=== PATIENT | female | born 1980 | race Caucasian/White ===

== ENCOUNTER 2019-05-16 10:29 | Day surgery (SDC) | payer OTHER ==
[2019-05-15 16:37] VITALS: BMI 30.4
--- NOTE | 2019-05-16 11:07 | HP ---
History & Physical Update - History History: No Change - Physical Physical: No Change - Assessment Assessment: No Change - Plan Plan: No Change (Patient was evaluated and counseled prior to scheduled procedure. Risks and complications of D&C reiterated. All questions answered. Informed consnet obtained.)
[2019-05-16] MEDS ORDERED: DOXYCYCLINE INJECTION 100 MG in DEXTROSE 5%-WATER - 100 ML IVPB ONE (11:30)
[2019-05-16] MEDS ORDERED: PROPOFOL 20 ML ONE (11:43)
[2019-05-16] MEDS ORDERED: MIDAZOLAM HCL 2 MG/2 ML SINGLE DOSE VIAL ONE ×2 (11:43)
[2019-05-16] MEDS ORDERED: fentaNYL CITRATE 250 MCG/5 ML VIAL ONE (11:43)
[2019-05-16] MEDS ORDERED: DOXYCYCLINE HYCLATE 100 MG VIAL IVPB ONE (12:02)
[2019-05-16] MEDS ORDERED: ONDANSETRON 4 MG/2 ML VIAL IVPUSH PRN (12:28)
[2019-05-16] MEDS ORDERED: PROMETHAZINE HCL 25 MG/1 ML VIAL IVPUSH PRN (12:28)
[2019-05-16] MEDS ORDERED: LACTATED RINGERS SOLUTION 1,000 ML IV SCH (12:30)
--- NOTE | 2019-05-16 12:54 | OP ---
Operative Note - Note: Operative Date: 05/16/19 (dic # [id number]) Pre-Operative Diagnosis: incomplete ab Operation: Suction dilatation and curettage Findings: see dictation Implants: none Post-Operative Diagnosis: Same as Pre-op Surgeon: Shin Serna Anesthesia: MAC Specimens Removed: RPOC Estimated Blood Loss (mls): 5 Fluid Volume Replaced (mls): 200 Operative Report Dictated: Yes
--- NOTE | 2019-05-16 14:00 | OP ---
DATE OF OPERATION: 05/16/2019 DICTATING ATTENDING: Makayla Michele MD PREOPERATIVE DIAGNOSIS: A 39-year-old female with incomplete , abnormally increasing accelerator globulin, desiring surgical intervention. POSTOPERATIVE DIAGNOSIS: A 39-year-old female with incomplete , abnormally increasing accelerator globulin, desiring surgical intervention. PROCEDURE: Dilatation and curettage. SURGEON: Makayla Michele MD SENIOR OFFICE SUPPORT ASSISTANT SOSA: None. ANESTHESIA: MAC. ESTIMATED BLOOD LOSS: Minimal. URINE OUTPUT: None. INTRAVENOUS FLUIDS: Crystalloid, 200 mL. FINDINGS: Normal external genitalia and vaginal mucosa, mild degree of anterior prolapse noted. The cervix was multiparous in appearance with no abnormalities. Cervix was closed. The uterus approximation was about 7-8 weeks of gestation. A small amount of tissue noted in curetting and suction curettage. Specimen sent to pathology. No active bleeding at the conclusion of the procedure. DESCRIPTION OF PROCEDURE: The patient was taken to the operating room where anesthesia was found to be adequate. She was then prepped and draped in a normal sterile fashion. Appropriate time-out took place. Pearl retractors were utilized to visualize the anterior aspect of the cervix, which was grasped with a single-tooth tenaculum. The cervix was progressively dilated with metal dilators. Small curetting took place systematically until gritty texture was noted throughout the entire endometrial cavity. A No. 8 curved cannula was introduced through the fundus without difficulty and suction curetting took place. Minimal amount of blood and tissue retrieved. The procedure concluded when a small amount of bubbles were noted in the tubing. Specimens were sent to Pathology. All instruments were retrieved from the vagina. A single-tooth tenaculum was removed, and no active bleeding was noted. Instrument count was reported as correct x2 by the staff. Patient tolerated the procedure well and was brought to the recovery room in stable condition. MKAAYLA MICHELE MD [id number]
[2019-05-16] MEDS ORDERED: ACETAMINOPHEN 325 MG TABLET (FP) PO ONE ×2 (14:25→14:45)
[2019-05-16] MEDS ORDERED: ACETAMINOPHEN 325 MG TABLET (FP) ONE (14:29)
[2019-05-16] MEDS ORDERED: DOXYCYCLINE HYCLATE 100 MG CAPSULE PO ONE ×2 (15:00→15:20)
[2019-05-16 15:59] VITALS: BP 115/61; PULSE 80; TEMP 98
--- NOTE | 2019-05-18 18:37 | PATH ---
Surgical Pathology Report Patient Name: BECKA LIRA Med. Rec. #: [id number] /Age/Gender: 1980 (Age: 39) / F Account: [id number] Location: [facility] SURGICAL Taken: 05/16/2019 Received: 05/16/2019 Reported: 05/18/2019 Physicians: Shin Serna MD Specimen(s) Received PRODUCTS OF CONCEPTION Clinical History Retained products of conception Final Diagnosis PRODUCTS OF CONCEPTION, DILATION AND CURETTAGE: FRAGMENTS OF ENDOMETRIUM WITH CHRONIC ENDOMETRITIS AND BENIGN CERVICAL TISSUE. NO CHORIONIC VILLI/VILLOUS TISSUE IDENTIFIED. Electronically Signed Ladonna Sharma M.D. Gross Description Received in formalin labeled "products of conception," is a 2.5 x 2.1 x 0.3 cm aggregate of javed-brown soft tissue fragments. No definite villous tissue or somatic tissue is identified. The formalin is filtered and the specimen is entirely submitted in one cassette. 05/17/2019 [facility]05/17/2019
== END 2019-05-16 15:35 | disposition home or self-care (01) ==
LOC: JASU-SURG 10:29
PROVIDERS: ATTEND Student in an Organized Health Care Education/Training Program
PROC: 10D17ZZ Extraction of Products of Conception, Retained, Via Natural or Artificial Opening (ICD-10-PCS; principal; 2019-05-16 11:30)
DX: O03.4 Incomplete spontaneous abortion without complication (principal)
CPT/HCPCS: 88305-TC; 94760

== ENCOUNTER 2019-07-27 04:57 | Day surgery (SDC) | payer OTHER ==
--- NOTE | 2019-07-27 11:50 | HP ---
History & Physical Update - Physical Physical: No Change - Assessment Assessment: No Change - Plan Plan: No Change
[2019-07-27] MEDS ORDERED: BUPIVACAINE HCL/PF 0.5% (5 MG/ML) 30 ML VIAL IJ ONE (12:26)
[2019-07-27] MEDS ORDERED: fentaNYL CITRATE 250 MCG/5 ML VIAL ONE (12:37)
[2019-07-27] MEDS ORDERED: MIDAZOLAM HCL 2 MG/2 ML SINGLE DOSE VIAL ONE (12:37)
[2019-07-27] MEDS ORDERED: DEXAMETHASONE SOD PHOSPHATE 4 MG/1 ML VIAL ONE (12:37)
[2019-07-27] MEDS ORDERED: KETOROLAC TROMETHAMINE 30 MG/1 ML VIAL ONE (12:37)
[2019-07-27] MEDS ORDERED: PROPOFOL 20 ML ONE ×2 (12:37)
[2019-07-27] MEDS ORDERED: LIDOCAINE HCL/PF 2% SDV 5ML VIAL ONE (12:37)
[2019-07-27] MEDS ORDERED: ROCURONIUM BROMIDE 50 MG/5 ML SYRINGE ONE (12:37)
[2019-07-27] MEDS ORDERED: BUPIVACAINE HCL/PF 2.5 MG/ML - 30 ML VIAL IJ ONE ×2 (13:02)
[2019-07-27] MEDS ORDERED: GLYCOPYRROLATE 0.2 MG/1 ML VIAL ONE ×2 (13:42)
[2019-07-27] MEDS ORDERED: NEOSTIGMINE METHYLSULFATE 0.5 MG/ML - 10 ML MDV ONE (13:42)
[2019-07-27] MEDS ORDERED: ONDANSETRON 4 MG/2 ML VIAL IVPUSH PRN (14:00)
[2019-07-27] MEDS ORDERED: PROMETHAZINE HCL 25 MG/1 ML VIAL IVPUSH PRN (14:00)
[2019-07-27] MEDS ORDERED: oxyCODONE HCL 5 MG TABLET PO PRN (14:00)
--- NOTE | 2019-07-27 14:00 | OP ---
Operative Note - Note: Operative Date: 07/27/19 Pre-Operative Diagnosis: Multiparity, desire for sterilization Operation: Laparoscopic Bilateral tubal ligation Findings: as dictated Post-Operative Diagnosis: Same as Pre-op Surgeon: Shin Serna Horizontal Drill Operator: Yanet Escobar Anesthesiologist/HANDBAG FRAMER: Robert Mullen Anesthesia: General, Local Specimens Removed: Bilateral fallopian tubes Estimated Blood Loss (mls): 5 (ml) Drains, Volume Out (mls): 100 (ml yellow urine) Fluid Volume Replaced (mls): 1 (L LR) Operative Report Dictated: Yes
--- NOTE | 2019-07-27 14:04 | SURG ---
Surgery Toy Mechanic Note Toy Mechanic: Yanet Escobar PA-C (Suzy) Date of Service: 07/27/19 Diagnosis: Multiparity, desire of sterilization Procedure: Operation: Laparoscopic Bilateral tubal ligation I was present for the entirety of the operative procedure. For further detail, please refer to operative report. Visit type - Case Type Case Type: Scheduled - Emergency Emergency Visit: No - New patient This patient is new to me today: Yes Date on this admission: 07/27/19 - Critical Care Critical Care patient: No
--- NOTE | 2019-07-27 14:11 | OP ---
Operative Note - Note: Operative Date: 07/27/19 ([id number]) Pre-Operative Diagnosis: multiparity Operation: laparoscopic bilateral salpingectomy Findings: see dictation Post-Operative Diagnosis: Same as Pre-op Surgeon: Shin Serna Anesthesia: General Estimated Blood Loss (mls): 5 Drains, Volume Out (mls): 100 (clear urine) Fluid Volume Replaced (mls): 1,000 Operative Report Dictated: Yes
--- NOTE | 2019-07-27 17:56 | OP ---
DATE OF OPERATION: 07/27/2019 PREOPERATIVE DIAGNOSIS: A 39-year-old multiparous female desires sterilization. Counseled regarding bilateral salpingectomy and acceptable. POSTOPERATIVE DIAGNOSIS: A 39-year-old multiparous female desires sterilization. Counseled regarding bilateral salpingectomy and acceptable. PROCEDURE: Laparoscopic bilateral salpingectomy. SURGEON: Makayla Michele MD RING SPINNER: DAMIAN Escobar ANESTHESIA: General. ESTIMATED BLOOD LOSS: Minimal. INTRAVENOUS FLUIDS: 1 L of crystalloid. URINE OUTPUT: 100 mL of clear urine. COMPLICATIONS: None. FINDINGS: Normal external genitalia and vaginal mucosa. Cervix was consistent with multiparity. Anterior abdominal wall anatomy was consistent with normal anatomy. Moderate amount of subcutaneous adipose tissue. Point of entry revealed no visceral adhesions. Normal intra-abdominal findings. Uterus, bilateral tubes, and ovaries consistent with normal anatomy. DESCRIPTION OF PROCEDURE: The patient was taken to the operating room where anesthesia was found to be adequate. She was then prepped and draped in a normal sterile fashion. Appropriate time-out took place. Then a Martin catheter was placed atraumatically. Metal retractors were used to visualize the cervix, which was slightly dilated, and HUMI manipulator was introduced without difficulty to a depth of 8 cm. Balloon tip inflated. All instruments were retrieved from the vagina. Attention was then re-directed to anterior abdominal wall where an infraumbilical incision was made with the scalpel to accommodate a Virgen trocar. The subcutaneous tissues were dissected off bluntly. The fascia was elevated with Destini clamps and transected. The underlying peritoneum was entered bluntly. The Virgen trocar was placed and insufflating media activated. Appropriate placement was confirmed with immediate evaluation by the laparoscope. No active bleeding or evidence of trauma at the point of entry or underlying viscera. The rest of the findings as previously mentioned. Additionally noted that 0 Polysorb anchoring stitches were placed at the fascial incision edges prior to the placement of the Virgen trocar. A right lower quadrant 5-mm trocar was placed under constant visualization without difficulty followed by a left lower quadrant as well. The uterus was elevated with the HUMI manipulator, and the left fallopian tube was elevated away from any surrounding viscera, and the mesosalpinx parallel to the tube was cauterized and transected with the LigaSure instrument. The entire tube was excised. No active bleeding from the surgical stump. Attention then was re-directed to the contralateral fallopian tube, which underwent the exact same procedure just described without difficulty. Excellent hemostasis noted. Endobag was placed through the infraumbilical port and the 2 fallopian tube specimens were secured in it. The Endobag was retrieved without difficulty with the specimens in place. The specimens were sent to Pathology. Inspection of the pelvis, the abdomen, and the surgical area revealed no abnormalities. The right lower quadrant port was removed under constant visualization followed by the left lower quadrant one. All insufflating media was evacuated from the abdomen, scope retrieved, and the infraumbilical port removed as well. The previously placed anchoring fascial stitches were tied off, and an additional suture of the same material placed to completely obliterate the fascial defect. This was done as the fascial incision was elevated by grasping the anchoring stitches. The skin incisions were approximated with 4-0 Monocryl subcuticular stitches. Excellent hemostasis and reapproximation achieved. Attention then was re-directed to the vaginal area where the HUMI manipulator and the Martin catheter were removed without difficulty. No active bleeding noted. Sponge, instrument count was reported as correct x2 by the staff. The patient is going to the recovery room in stable condition. MAKAYLA MICHELE MD [id number] MTDD
[2019-07-27 18:06] VITALS: TEMP 98.4
[2019-07-27 18:22] VITALS: BP 116/72; PULSE 67
--- NOTE | 2019-08-03 10:06 | PATH ---
Surgical Pathology Report Patient Name: BECKA LIAR Med. Rec. #: [id number] /Age/Gender: 1980 (Age: 39) / F Account: [id number] Location: [facility] SURGICAL Taken: 07/27/2019 Received: 07/30/2019 Reported: 08/03/2019 Physicians: Shin Serna MD Specimen(s) Received FALLOPIAN TUBES, RIGHT AND LEFT Clinical History Multiparity Final Diagnosis FALLOPIAN TUBES, RIGHT AND LEFT, SALPINGECTOMY: LONGER FALLOPIAN TUBE WITH FOCI OF HEMORRHAGE, CHRONIC INFLAMMATION, HISTIOCYTIC INFILTRATE, REACTIVE AND DEGENERATIVE CHANGES, AND ASSOCIATED DYSTROPHIC CALCIFICATION WITHIN LUMEN. FIMBRIATED END, FULL LUMINAL PORTION, AND WALTHARD NEST CYSTS PRESENT. SHORTER FALLOPIAN TUBE WITH SMALL PARATUBAL CYST (INCLUDING FIMBRIATED END AND FULL LUMINAL PORTION). Electronically Signed Ladonna Sharma M.D. Gross Description Received in formalin labeled "right and left fallopian tube," are 2 undesignated, fimbriated fallopian tubes measuring 6.0 and 7.0 cm in length. The outer surfaces are javed-weiss and smooth. Sectioning reveals unremarkable lumen. Fire Fighting Equipment Specialist sections are submitted in 4 cassettes as follows: 1-shorter fallopian tube fimbria; 2-cross sections of shorter fallopian tube; 3-longer fallopian tube fimbria; 4-cross sections of longer fallopian tube. Additional cassettes are submitted as follows: 0-3-pcjtsocyv shorter fallopian tube; 3-6-gkjpgoxjy longer fallopian tube. 07/31/2019 [place]07/31/2019
== END 2019-07-27 18:33 | disposition home or self-care (01) ==
LOC: JASU-SURG 04:57
PROVIDERS: ATTEND Student in an Organized Health Care Education/Training Program
PROC: 0UB74ZZ Excision of Bilateral Fallopian Tubes, Percutaneous Endoscopic Approach (ICD-10-PCS; principal; 2019-07-27 11:30)
DX: Z30.2 Encounter for sterilization (principal)
CPT/HCPCS: 88302-TC; 94760

== ENCOUNTER 2019-10-30 11:40 | Emergency (ER) | payer OTHER ==
[2019-10-30 11:56] VITALS: BP 108/68; PULSE 90; BMI 25.6
[2019-10-30] MEDS ORDERED: ACETAMINOPHEN 325 MG TABLET (FP) PO ONE (12:09)
[2019-10-30] MEDS ORDERED: ACETAMINOPHEN 325 MG TABLET (FP) ONE (12:14)
--- NOTE | 2019-10-30 12:47 | PDOC ---
History of Present Illness - General Chief Complaint: Sore Throat Stated Complaint: SORE THROAT/RUNNY NOSE Time Seen by Provider: 10/30/19 12:03 History Source: Patient Exam Limitations: No Limitations Past History - Past Medical History Allergies/Adverse Reactions: Allergies Allergy/AdvReac Type Severity Reaction Status Date / Time No Known Allergies Allergy Verified 07/27/19 10:11 Home Medications: Ambulatory Orders Oseltamivir Phosphate [Tamiflu -] 75 mg PO BID #10 capsule 10/30/19 COPD: No Disorders: No Hypercholesterolemia: No - Surgical History Lung Surgery: No - Immunization History Immunization Up to Date: No - Psycho Social/Smoking Cessation Hx Smoking History: Never smoked Hx Alcohol Use: No Drug/Substance Use Hx: No Substance Use Type: None Hx Substance Use Treatment: No *Physical Exam - Vital Signs Last Vital Signs Temp Pulse Resp BP Pulse Ox 102.9 F H 90 16 108/68 100 10/30/19 11:53 10/30/19 11:53 10/30/19 11:53 10/30/19 11:53 10/30/19 11:53 - Physical Exam General Appearance: No: Apparent Distress HEENT: positive: Pharyngeal Erythema (mild), Nasal Congestion. negative: Muffled/Hoarse voice, Tonsillar Exudate, Tonsillar Erythema, Rhinorrhea, Sinus Tenderness Respiratory/Chest: positive: Lungs Clear, Normal Breath Sounds. negative: Respiratory Distress Cardiovascular: positive: Regular Rhythm, Regular Rate, S1, S2. negative: Murmur Gastrointestinal/Abdominal: positive: Normal Bowel Sounds, Soft. negative: Tender, Distended, Guarding, Rebound Neurologic: positive: Alert ED Treatment Course - Medications Given in the ED: ED Medications Discontinued Medications Generic Name Dose Route Start Last Admin Trade Name Freq PRN Reason Stop Dose Admin Acetaminophen 975 mg 10/30/19 12:09 10/30/19 12:12 Tylenol - PO 10/30/19 12:10 975 mg ONCE ONE Administration Medical Decision Making - Medical Decision Making 39 y/o F hx of B/L tubal ligations presents with fever x 2 days along with bodyaches, congestion, rhinorrhea and sore throat. Denies recent travel, sob, cp , abd pain, n/v/d, urinary sxs. Did not take any antipyretics today. Took Theraflu yesterday. PE not concerning for strep Likely viral syndrome Plan: Tylenol, Flu swab 10/30/19 12:45 Patient flu+ Fever going down; currently 99.6 Patient states she will pickup med from pharmacy stable for dc 10/30/19 13:07 Discharge - Discharge Information Problems reviewed: Yes Clinical Impression/Diagnosis: Influenza Condition: Stable Disposition: HOME - Admission No - Additional Discharge Information Prescriptions: Oseltamivir Phosphate [Tamiflu -] 75 mg PO BID #10 capsule Prescription Drug Monitoring Program (I-STOP) results: I-STOP not reviewed - Follow up/Referral Referrals: Ana Rosa Ortiz MD [Primary Care Provider] - 2 Days - Patient Discharge Instructions Patient Printed Discharge Instructions: DI for Influenza -- Adult Additional Instructions: Thank you for choosing [facility]. It was a pleasure taking care of you. You have the flu Alternate between Tylenol every 4 and Motrin every 6 hours as needed for fever Take Tamiflu as directed Recommend rest and hydration The flu can spread via cough. Be sure to cover your mouth. Wash hands. Follow-up with your doctor in 2 days Return to the Emergency Department if your symptoms worsen or persist or have other concerning symptoms. Brown por elegir el [facility]. Fue un placer cuidar de ti. Usted tiene la gripe Alterne entre Tylenol cada 4 y Motrin cada 6 horas segn sea necesario para la fiebre [place] Tamiflu segn las indicaciones. Recomendar descanso e hidratacin. La gripe se puede propagar a travs de la tos. Asegrese de cubrirse la boca. Lavarse las mary. Seguimiento con zayas mdico en 2 castillo. Regrese al departamento de emergencias si shubham sntomas empeoran o persisten o si tiene otros sntomas preocupantes. Print Language: VIETNAMESE - Post Discharge Activity
[2019-10-30 13:11] VITALS: TEMP 99.6
== END 2019-10-30 13:58 | disposition home or self-care (01) ==
LOC: JER 11:40
DX: J09.X2 Influenza due to identified novel influenza A virus with other respiratory manifestations (principal); Z98.51 Tubal ligation status
CPT/HCPCS: 87804; 99282-25